=== PATIENT | male | born 1960 | race American Indian/Alaskan Native ===

== ENCOUNTER 2020-05-03 14:18 | Outpatient (CLI) | payer BC | END 2020-05-03 23:31 | disposition home or self-care (01) | LOC: RAD 14:18 | DX: R22.2 Localized swelling, mass and lump, trunk (principal) ==

== ENCOUNTER 2020-05-07 08:00 | Outpatient (CLI) | payer BC | END 2020-05-07 18:55 | disposition home or self-care (01) | LOC: CT 08:00 | DX: R22.2 Localized swelling, mass and lump, trunk (principal) | CPT/HCPCS: 36415; 82565; 84520; Q9963 ==

== ENCOUNTER 2020-05-17 08:52 | Outpatient (CLI) | payer BC | END 2020-05-17 19:22 | disposition home or self-care (01) | LOC: MRI 08:52 | DX: R22.2 Localized swelling, mass and lump, trunk (principal) | CPT/HCPCS: A9576 ==

== ENCOUNTER 2020-06-09 10:42 | Outpatient (CLI) | payer BC | END 2020-06-09 20:25 | disposition home or self-care (01) | LOC: RAD 10:42 | DX: Z01.811 Encounter for preprocedural respiratory examination (principal) ==

== ENCOUNTER 2021-03-09 10:00 | Outpatient (CLI) | payer BC ==
[2021-03-09 10:32] LABS: PLATELET COUNT 231 K/uL (142-355)
[2021-03-09 10:54] LABS: POTASSIUM 4.3 mmol/L (3.6-5.2)
== END 2021-03-09 21:31 | disposition home or self-care (01) ==
LOC: LABW 10:00
PROVIDERS: ATTEND Plastic Surgery
DX: Z01.810 Encounter for preprocedural cardiovascular examination (principal); Z01.812 Encounter for preprocedural laboratory examination; Z01.818 Encounter for other preprocedural examination
CPT/HCPCS: 36415; 80048; 85027; 93005

== ENCOUNTER 2022-03-29 17:17 | Observation (INO) | payer BC ==
[~2022-03-29] VITALS: Ht 182.9 cm; Wt 89.6 kg
[2022-03-29 17:17] VITALS: BP 109/75; TEMP 97.5
[2022-03-29 17:53] LABS: PLATELET COUNT 739 K/uL (142-355)
[2022-03-29 18:00] VITALS: BP 122/71
[2022-03-29 18:05] LABS: POTASSIUM 3.9 mmol/L (3.6-5.2)
[2022-03-29 19:00] VITALS: BP 126/75; TEMP 97.9
[2022-03-29 22:01] VITALS: BP 1323/76; TEMP 98.2; Ht 182.9 cm; Wt 89.6 kg
[2022-03-30] VITALS (16 sets, daily range): BP systolic 102–132; BP diastolic 56–80; TEMP 97.6–99
[2022-03-30] MEDS ORDERED: FUROSEMIDE20 MG PO (03:49)
[2022-03-30] MEDS ORDERED: AMLODIPINE BESYLATE PO ×3 (03:50→08:34)
[2022-03-30] MEDS ORDERED: NITROGLYCERIN0.4 MG SL (03:50)
[2022-03-30] MEDS ORDERED: CORRECTOL100 MG PO (03:51)
[2022-03-30] MEDS ORDERED: HYDROCODONE BIT1 TA1 PO (03:52)
[2022-03-30] MEDS ORDERED: OMEPRAZOLE40 MG PO (03:53)
[2022-03-30] MEDS ORDERED: AMLODIPINE PO (10:13)
[2022-03-30 15:59] LABS: PLATELET COUNT 617 K/uL (142-355)
[2022-03-30 16:57] LABS: POTASSIUM 4.1 mmol/L (3.6-5.2)
[2022-03-31] VITALS: BP 109/67; TEMP 98
[2022-03-31 04:00] VITALS: BP 107/69; TEMP 98.2
[2022-03-31 08:00] VITALS: BP 111/68; TEMP 98.3
[2022-03-31 12:00] VITALS: BP 116/67; TEMP 97.7
[2022-03-31] MEDS ORDERED: LEVAQUIN250 MG PO (13:20)
== END 2022-03-31 15:05 | disposition home or self-care (01) ==
LOC: ED 17:17 → MED/SURG 19:01
PROVIDERS: ADMIT Emergency Medicine; ATTEND Internal Medicine
PROC: 30233N1 Transfusion of Nonautologous Red Blood Cells into Peripheral Vein, Percutaneous Approach (ICD-10-PCS; principal; 2022-03-30)
DX: D50.8 Other iron deficiency anemias (principal); J18.8 Other pneumonia, unspecified organism; I10 Essential (primary) hypertension; K21.9 Gastro-esophageal reflux disease without esophagitis; R60.9 Edema, unspecified; I25.10 Atherosclerotic heart disease of native coronary artery without angina pectoris; Z85.9 Personal history of malignant neoplasm, unspecified; R06.02 Shortness of breath
CPT/HCPCS: 36415; 36430; 80053; 82607; 82728; 82747; 83540; 83550; 83880; 84466; 84484; 85027; 85610; 86850; 86900; 86901; 86922; 87040; 87070; 87205; 87635; 93005; 94664; 94760; 96365; 96366; 96367; 96374; 99220; 99284; G0378; J2405; J2543; J3370; P9016; U0003

== ENCOUNTER 2022-05-26 09:31 | Outpatient (CLI) | payer BC ==
[~2022-05-26 09:31] MED LIST: AMLODIPINE BESYLATE PO; AMLODIPINE PO; CORRECTOL100 MG PO; FUROSEMIDE20 MG PO; HYDROCODONE BIT1 TA1 PO; LEVAQUIN250 MG PO; NITROGLYCERIN0.4 MG SL; OMEPRAZOLE40 MG PO
== END 2022-05-26 21:16 | disposition home or self-care (01) ==
LOC: CT 09:31
PROVIDERS: ATTEND Physician Assistant
DX: M48.9 Spondylopathy, unspecified (principal)

== ENCOUNTER 2022-08-15 09:36 | Outpatient (CLI) | payer BC | END 2022-08-15 20:20 | disposition home or self-care (01) | LOC: RAD 09:36 | PROVIDERS: ATTEND Neurological Surgery | DX: G95.29 Other cord compression (principal); M48.9 Spondylopathy, unspecified ==

== ENCOUNTER 2023-03-20 08:43 | Emergency (ER) | payer MEDICARE ==
[~2023-03-20] VITALS: Ht 182.9 cm; Wt 97.5 kg
[2023-03-20 10:10] VITALS: BP 131/70; TEMP 98.1
== END 2023-03-20 10:15 | disposition home or self-care (01) ==
LOC: ED 08:43
DX: B87.1 Wound myiasis (principal)
CPT/HCPCS: 99283

== ENCOUNTER 2023-04-10 14:16 | Outpatient (CLI) | payer OTHER | END 2023-04-10 20:52 | disposition home or self-care (01) | LOC: US 14:16 | PROVIDERS: ATTEND Nurse Practitioner Family | DX: N50.811 Right testicular pain (principal) ==